=== PATIENT | male | born 1950 | race Caucasian/White ===

== ENCOUNTER 2020-09-14 13:40 | Emergency (ER) | payer BC ==
[~2020-09-14] VITALS: Ht 165.1 cm; Wt 70.0 kg
[2020-09-14] MEDS ORDERED: FLUORESCEIN SODIUM 1MG/STRIP RIGHTEYE ONE (14:00)
[2020-09-14] MEDS ORDERED: TETRACAINE 0.5% OPHTH DROPS 4ML RIGHTEYE ONE (14:00)
[2020-09-14 17:30] VITALS: BP 149/96
== END 2020-09-14 17:53 | disposition home or self-care (01) ==
LOC: ER 13:40
DX: H53.8 Other visual disturbances (principal); Z98.49 Cataract extraction status, unspecified eye
CPT/HCPCS: 70480; 99284